=== PATIENT | male | born 1985 | race Two or more races ===

== ENCOUNTER 2023-04-25 14:51 | Emergency (ER) | payer OTHER ==
[~2023-04-25] VITALS: Ht 177.8 cm; Wt 86.3 kg
[2023-04-25 16:15] LABS: Basophils # (auto) 0 10 ^3/uL (0-0.2); Basophils % (auto) 0.5 % (0.0-2.0); Eosinophils # (auto) 0 10 ^3/uL (0-0.8); Eosinophils % (auto) 0.2 % (0.0-7.0); Hematocrit 51.3 % (41.0-53.0); Hemoglobin 17.2 g/dL (13.5-17.5); Lymphocytes % (auto) 25.5 % (10.0-50.0); Mean Corpuscular Hemoglobin 31.9 pg (28.0-32.0); Mean Corpuscular Hgb Conc. 33.5 g/dL (32.0-36.0); Monocytes # (auto) 0.5 10 ^3/uL (0-1.3); Monocytes % (auto) 6.5 % (0.0-12.0); Neutrophils # (auto) 5.2 10 ^3/uL (1.6-8.6); Neutrophils % (auto) 67.3 % (37.0-80.0); Nucleated Red Blood Cells % 0.1 %; White Blood Cell 7.7 10^3/uL (4.4-10.8)
[2023-04-25 16:31] LABS: Alanine Aminotransferase 41 U/L (7-40); Albumin 4.7 g/dL (3.2-4.8); Alkaline Phosphatase 74 U/L (46-116); Anion Gap 8 (5-15); Aspartate Aminotransferase 27 U/L (13-40); BUN/Creatinine Ratio 7.8 (10.0-20.0); Blood Urea Nitrogen 9 mg/dL (9-23); Calcium 9.5 mg/dL (8.7-10.4); Carbon Dioxide 25 mmol/L (20-30); Chloride 104 mmol/L (98-107); Glucose 84 mg/dL (74-106); Lipase 42 U/L (12-53); Potassium 4.4 mmol/L (3.5-5.1); Sodium 137 mmol/L (136-145)
[2023-04-25 16:32] LABS: Bilirubin, Total 1.2 mg/dL (0.2-1.0); Total Protein 7.8 g/dL (5.7-8.2)
[2023-04-25] MEDS ORDERED: SUCRALFATE 1 GM TAB PO ONE (17:30)
[2023-04-25] MEDS ORDERED: PANTOPRAZOLE 40 MG/10 ML VIAL INJ IV ONE (17:30)
[2023-04-25] MEDS ORDERED: SODIUM CHLORIDE 0.9% 1,000 ML IV ONE (17:30)
[2023-04-25] MEDS ORDERED: ONDANSETRON HCL 4 MG/2 ML VIAL IV ONE (17:30)
[2023-04-25] MEDS ORDERED: LIDOCAINE VISCOUS 2% 15ML UD PO ONE (17:30)
[2023-04-25] MEDS ORDERED: MAALOX PLUS or MAALOX 30 ML PO ONE (17:30)
[2023-04-25 18:40] LABS: Urine Bacteria NONE SEEN /hpf (None Seen); Urine Blood Negative /uL (Negative); Urine Clarity Clear (Clear); Urine Color Yellow (Yellow); Urine Mucus FEW (None Seen); Urine Protein, UAD TRACE (Negative); Urine Specific Gravity 1.028 (1.001-1.035); Urine Urobilinogen Normal (Negative); Urine WBC <1 /hpf (0 - 3); Urine pH 5.5 (5.0-8.0)
[2023-04-25 21:06] VITALS: BP 129/74; PULSE 84; RESP 16; TEMP 98.2; O2SAT 98
== END 2023-04-25 21:15 | disposition home or self-care (01) ==
LOC: ER 14:51
DX: R10.9 Unspecified abdominal pain (principal); R11.2 Nausea with vomiting, unspecified
CPT/HCPCS: 36415; 74176; 80053; 81001; 83690; 85025; 96361; 96374; 96375; 99285; C9113; J2405; J7030

== ENCOUNTER 2024-06-09 16:18 | Inpatient (IN) | payer OTHER ==
[~2024-06-09] VITALS: Ht 170.2 cm; Wt 99.4 kg
--- NOTE | 2024-06-09 17:17 | ED.PDOC ---
GI ASSESSMENT HPI Comments Edilberto Cantrell is a 39-year-old male patient who presents to the ED brought by EMS with chief complaint of epigastric stabbing abdominal pain which radiates towards back which started yesterday at 7:00 a.m. with intensity 8/10 and has been continuous, associated with dyspnea and functional class IV, nausea, vomiting with clear emesis, fever and chills. He says that the pain increases with arm motion and breathing in deeply. Denies palpitation, syncope, diarrhea, constipation, recent travel, sick contacts, bleeding, dysuria and motor or sensory deficits. Past medical history: Gastritis with ulcers Surgical history: EGD three years ago Family history: Mom has hypertension, grandfather has history of stroke Social history: Lives in [place], currently is in longterm for the past seven years. Used to consume marijuana had until 2003. Denies current tobacco, alcohol and other drug abuse. Allergies: Denies Home medication: Sucralfate and omeprazole Chief Complaint: Abdominal Pain Time Seen by MD: 16:23 Allergies: Coded Allergies: NO KNOWN ALLERGIES (Unverified , 04/25/23) Mode of Arrival: Ambulatory Past Medical History PAST MEDICAL HISTORY: Denies Surgical History: Denies all surgeries Family History Family History: Reviewed,noncontributory to illness, No family hx of Cancer, No family hx of DM, No family hx of Heart alton, No family hx of HTN, No family hx ofKidney alton, No family hx of Liver alton, No family hx of Lung alton, No family hx of Stroke Social History Smoker: Non-Smoker Alcohol: Denies ETOH Use Drugs: Denies Drug Use Lives In: Other Physical Exam General Appearance: No Apparent Distress, Normal HEENT: Normal ENT Inspection, Pharynx Normal, TMs Normal Neck: Full Range of Motion, Non-Tender, Normal, Normal Inspection Respiratory: Chest Non-Tender, Lungs Clear, No Accessory Muscle Use, No Respiratory Distress, Normal Breath Sounds Cardiovascular: No Edema, No JVD, No Murmur, No Gallop, Normal Peripheral Pulses, Regular Rate/Rhythm Breast Exam: Deferred Gastrointestinal: No Organomegaly, No Pulsatile Mass, Normal Bowel Sounds, Soft, Tenderness (Epigastrium) Genitalia: Deferred Pelvic: Deferred Rectal: Deferred Extremities: No calf tenderness, Normal capillary refill, Normal inspection, Normal range of motion, Non-tender, No pedal edema 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 Was a procedure done?: No GI differential Dx Differential Diagnosis: AAA, Appendicitis, Bowel Obstruction, Cholangitis, Constipation, Gastritis/PUD, Gastroenteritis, GI hemorrhage, Ischemic Bowel, UTI X-Ray, Labs, Meds, VS Vital Signs Date Time Temp Pulse Resp B/P (MAP) Pulse Ox O2 Delivery O2 Flow Rate FiO2 06/09/24 18:24 85 16 98 Room Air* 0 21 06/09/24 17:08 92 06/09/24 16:32 99.0 72 12 131/94 (106) 98 Lab Test 06/09/24 18:19 06/09/24 18:01 Range/Units White Blood Count 7.0 4.4-10.8 10^3/uL Red Blood Count 5.78 4.5-5.90 10^6/uL Hemoglobin 18.8 H 13.5-17.5 g/dL Hematocrit 54.8 H 41.0-53.0 % Mean Corpuscular Volume 94.7 80.0-100.0 fL Mean Corpuscular Hemoglobin 32.6 H 28.0-32.0 pg Mean Corpuscular Hemoglobin Concent 34.4 32.0-36.0 g/dL Red Cell Distribution Width 13.2 11.8-14.3 % Platelet Count 215 140-450 10^3/uL Mean Platelet Volume 7.5 6.9-10.8 fL Neutrophils (%) (Auto) 55.8 37.0-80.0 % Lymphocytes (%) (Auto) 34.5 10.0-50.0 % Monocytes (%) (Auto) 8.8 0.0-12.0 % Eosinophils (%) (Auto) 0.2 0.0-7.0 % Basophils (%) (Auto) 0.7 0.0-2.0 % Neutrophils # (Auto) 3.9 1.6-8.6 10 ^3/uL Lymphocytes # (Auto) 2.4 0.4-5.4 10 ^3/uL Monocytes # (Auto) 0.6 0-1.3 10 ^3/uL Eosinophils # (Auto) 0 0-0.8 10 ^3/uL Basophils # (Auto) 0 0-0.2 10 ^3/uL Nucleated Red Blood Cells 0.4 % Prothrombin Time 11.2 9.3-11.8 sec Prothrombin Time INR 1.06 0.9-1.15 Activated Partial Thromboplast Time 22.7 L 24.5-34.5 SEC Sodium Level 139 136-145 mmol/L Potassium Level 3.7 3.5-5.1 mmol/L Chloride Level 105 98-107 mmol/L Carbon Dioxide Level 25 20-31 mmol/L Anion Gap 9 5-15 Blood Urea Nitrogen 14 9-23 mg/dL Creatinine 1.32 H 0.700-1.30 mg/dL Glomerular Filtration Rate Calc 70 >90 mL/min BUN/Creatinine Ratio 10.6 10.0-20.0 Serum Glucose 92 74-106 mg/dL Lactic Acid Level 1.9 0.4-2.0 mmol/L Calcium Level 10.5 H 8.7-10.4 mg/dL Phosphorus Level 3.1 2.4-5.1 mg/dL Magnesium Level 1.9 1.6-2.6 mg/dL Total Bilirubin 0.9 0.2-1.0 mg/dL Aspartate Amino Transferase (AST) 30 13-40 U/L Alanine Aminotransferase (ALT) 31 7-40 U/L Alkaline Phosphatase 79 46-116 U/L Total Protein 8.7 H 5.7-8.2 g/dL Albumin 5.5 H 3.2-4.8 g/dL Lipase 42 12-53 U/L Troponin I High Sensitivity < 3 L </=54 ng/L Thyroid Stimulating Hormone (TSH) 2.45 0.55-4.78 uIU/mL Current Medications Medications (Trade) Dose Ordered Sig/Carlos Route Start Time Stop Time Status Last Admin Pantoprazole Sodium (Protonix) 40 mg ONCE ONCE IV 06/09/24 17:15 06/09/24 17:34 DC 06/09/24 18:23 Sodium Chloride 1,000 ml @ 100 mls/hr Q10H IV 06/09/24 17:15 06/09/24 18:23 X-Ray, Labs, Meds, VS Comment Review laboratory results and abdominal ultrasound, showed YOGESH and hemoconcentration probably secondary to dehydration due to emesis. Time of 1ST Reevaluation: 19:37 Reevaluation 1ST: Worsened Patient Education/Counseling: Diagnosis, Treatment, Prognosis Family Education/Counseling: Diagnosis, Treatment, Prognosis Departure 1 Departure Time of Disposition: 19:37 Impression: Primary Impression: YOGESH (acute kidney injury) Disposition: 09 ADMITTED INPATIENT Condition: Serious Additional Instructions: Reviewed vital signs, laboratory results and abdominal ultrasound. Did not show any acute abdominal disease. Patient was given p.o. water but did not tolerate, indicated IV Zofran. Patient will benefit from IV fluids and evaluate tolerance to oral intake. Recommend admission at this point until patient tolerates food intake. We will continue with IV fluids to improve hemoconcentration and YOGESH, and we will also indicated IV Protonix and IV Zofran. Critical Care Note Critical Care Time?: No Stability Stability form required: No Heart Score Heart Score: Heart Score Response (Comments) Value History N/A 0 EKG N/A 0 Age N/A 0 Risk Factors N/A 0 Troponin N/A 0 Total 0 ABDI MENCHACA RESIDENT Jun 09, 2024 17:17
--- NOTE | 2024-06-09 18:08 | DVH ---
EXAM: US ABDOMEN LIMITED CLINICAL HISTORY: Abdominal pain TECHNIQUE: Grayscale and limited color flow doppler ultrasound of the right upper quadrant is perfor med. COMPARISON: None Findings: Liver measures 11.9 cm in length with normal echotexture and contour. No evidence of focal hepatic l esions or intra- or extrahepatic ductal dilatation. Common bile duct measures 0.3 cm in diameter. Nor mal hepatopedal flow noted within the portal vein. No perihepatic free fluid is noted. Gallbladder appears within normal limits with gallbladder wall thickness measuring 0.1 cm. No evidenc e of shadowing calculi, biliary sludge or pericholecystic fluid. Negative sonographic Ramos's sign. Pancreas only partially visualized due to overlying bowel gas but is otherwise unremarkable . Right kidney measures 9.5 cm with normal contours, echotexture and cortical thickness. No evidence of hydronephrosis, calculi, cystic or solid renal lesions. Partially visualized inferior vena cava unremarkable. Impression: 1. No evidence of acute right upper quadrant abnormalities.
[2024-06-09] MEDS: SODIUM CHLORIDE 0.9% 1,000 ML IV SCH ×2 (18:23→20:18)
[2024-06-09] MEDS: PANTOPRAZOLE 40 MG/10 ML VIAL INJ IV ONE (18:23)
[2024-06-09 18:24] VITALS: PULSE 85; RESP 16; O2SAT 98
[2024-06-09 18:30] LABS: Eosinophils # (auto) 0 10 ^3/uL (0-0.8); Eosinophils % (auto) 0.2 % (0.0-7.0); Lymphocytes # (auto) 2.4 10 ^3/uL (0.4-5.4); Monocytes # (auto) 0.6 10 ^3/uL (0-1.3); Neutrophils # (auto) 3.9 10 ^3/uL (1.6-8.6)
[2024-06-09 18:32] LABS: Basophils # (auto) 0 10 ^3/uL (0-0.2); Basophils % (auto) 0.7 % (0.0-2.0); Hematocrit 54.8 % (41.0-53.0); Hemoglobin 18.8 g/dL (13.5-17.5); Lymphocytes % (auto) 34.5 % (10.0-50.0); Mean Corpuscular Hemoglobin 32.6 pg (28.0-32.0); Mean Corpuscular Hgb Conc. 34.4 g/dL (32.0-36.0); Mean Corpuscular Volume 94.7 fL (80.0-100.0); Monocytes % (auto) 8.8 % (0.0-12.0); Neutrophils % (auto) 55.8 % (37.0-80.0); Nucleated Red Blood Cells % 0.4 %; Platelet Count (auto) 215 10^3/uL (140-450); Red Blood Cells 5.78 10^6/uL (4.5-5.90); Red Cell Distribution Width 13.2 % (11.8-14.3)
[2024-06-09 18:54] LABS: Magnesium 1.9 mg/dL (1.6-2.6)
[2024-06-09 18:55] LABS: INR 1.06 (0.9-1.15); Partial Thromboplastin Time 22.7 SEC (24.5-34.5); Prothrombin Time 11.2 sec (9.3-11.8)
[2024-06-09 18:56] LABS: Alanine Aminotransferase 31 U/L (7-40); Alkaline Phosphatase 79 U/L (46-116); Anion Gap 9 (5-15); Aspartate Aminotransferase 30 U/L (13-40); BUN/Creatinine Ratio 10.6 (10.0-20.0); Bilirubin, Total 0.9 mg/dL (0.2-1.0); Blood Urea Nitrogen 14 mg/dL (9-23); Carbon Dioxide 25 mmol/L (20-31); Chloride 105 mmol/L (98-107); Glucose 92 mg/dL (74-106); Phosphorus 3.1 mg/dL (2.4-5.1); Potassium 3.7 mmol/L (3.5-5.1); Sodium 139 mmol/L (136-145)
[2024-06-09 19:00] LABS: Albumin 5.5 g/dL (3.2-4.8); Calcium 10.5 mg/dL (8.7-10.4); Total Protein 8.7 g/dL (5.7-8.2)
[2024-06-09] MEDS ORDERED: ONDANSETRON HCL 4 MG/2 ML VIAL IV PRN (19:45)
[2024-06-09] MEDS: SUCRALFATE 1 GM/10 ML ORAL SUSP PO ONE (20:05)
[2024-06-09] MEDS: ONDANSETRON HCL 4 MG/2 ML VIAL IV ONE (20:05)
[2024-06-09] MEDS: SODIUM CHLORIDE 0.9% 2,000 ML IV ONE (20:05)
[2024-06-09] MEDS ORDERED: MORPHINE SULFATE INJ 2 MG/ml SYRG IV PRN (21:00)
--- NOTE | 2024-06-09 21:37 | DVH ---
Exam: CT CT AB PEL WITH IV CON ONLY History: abd pain COMPARISON: None Technique: Multidetector spiral CT of the abdomen and pelvis was performed from lung bases to pubic s ymphysis. Intravenous contrast was administered during this examination. Portal venous imaging was obtained. Axial, coronal and sagittal multiplanar reformats were performed by the technologist on a separate workstation. Radiation Dose : 1. Abdomen/Pelvis: CTDIvol 12 mGy, DLP 663.86 mGy*cm. CONTRAST: Type of contrast: Omnipaque 300 Contrast injected: 100 ml Findings: Lung Bases: No acute or significant lung base finding. Normal heart size. No pleural or pericardial effusion. Liver: The liver is normal in size. No focal lesions. Normal hepatic vascular enhancement. Gallbladder and Biliary Tree: Unremarkable Spleen: Unremarkable Pancreas: The pancreas is normal in appearance without focal lesions or abnormal enhancement. Adrenal Glands: Unremarkable Kidneys: No hydronephrosis. Bladder: Unremarkable Bowel: The stomach is grossly normal in appearance. Small bowel and colon are normal in caliber and d istribution. Normal appendix is visualized in the right lower quadrant without findings of appendici tis. Ascites: Absent Lymphadenopathy: No mesenteric, retroperitoneal or periportal lymphadenopathy. Abdominal Wall and Mesentery: Unremarkable. Vasculature: The visualized abdominal aorta is normal in size and caliber. Abdominal and pelvic vess els demonstrate normal enhancement. Pelvic Organs: Unremarkable Musculoskeletal: No aggressive focal bony lesions, acute fractures or dislocation. IMPRESSION: 1. No acute abdominal or pelvic finding. Radiation optimization: All CT scans at this facility use at least one of these dose optimization radha hniques: automated exposure control mA and/or kV adjustment per patient size (includes targeted exam s where dose is matched to clinical indication) or iterative reconstruction.
[2024-06-09] MEDS: D5W/SOD CHL 0.45% 1,000 ML IV ONE (21:44)
[2024-06-09] MEDS: IOHEXOL 300 MG/ML 100ML BOTTLE IJ ONE (21:44)
[2024-06-09] MEDS: ENOXAPARIN SOD 40 MG/0.4 ML SYRINGE SC ONE (21:45)
[2024-06-09] MEDS: SUCRALFATE 1 GM/10 ML ORAL SUSP PO SCH (22:00)
[2024-06-09] MEDS: PANTOPRAZOLE 40 MG/10 ML VIAL INJ IV SCH (22:12)
[2024-06-09 22:43] VITALS: PULSE 86; RESP 16; O2SAT 98
[2024-06-09 23:11] VITALS: BP 105/62; PULSE 73; RESP 18; TEMP 98; O2SAT 97
[2024-06-09] MEDS: MORPHINE SULFATE 4 MG/ML SYR/VIAL IV PRN (23:43)
[2024-06-10] VITALS (8 sets, daily range): BP systolic 97–120; BP diastolic 54–68; PULSE 66–90; RESP 16–18; TEMP 98–98.7; O2SAT 96–98
[2024-06-10] MEDS ORDERED: SUCR1TAB PO (00:05)
[2024-06-10] MEDS ORDERED: OMEP20TA PO (00:05)
[2024-06-10 02:33] LABS: Urine Bacteria None Seen /hpf (None Seen)
[2024-06-10 03:14] LABS: Urine Blood Negative /uL (Negative); Urine Clarity Clear (Clear); Urine Color Colorless (Yellow); Urine Protein, UAD Negative (Negative); Urine Squamous Epithelial Cell None Seen /hpf (<5); Urine Urobilinogen Normal (Negative)
[2024-06-10 03:18] LABS: Urine Specific Gravity > 1.050 (1.001-1.035)
[2024-06-10 03:22] LABS: Urine WBC < 1 /HPF (0-3)
[2024-06-10 03:32] LABS: Amphetamine Screen, Urine Neg (NEGATIVE); Barbiturate Scree,Urine Neg (NEGATIVE); Benzodiazephine Screen, Urine Neg (NEGATIVE); Cannabinoid Screen, Urine Neg (NEGATIVE); Cocaine Screen, Urine Neg (NEGATIVE); Opiate Scree,Urine Neg (NEGATIVE); Phencyclidine Screen, Urine Neg (NEGATIVE)
--- NOTE | 2024-06-10 08:13 | ECG ---
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
[2024-06-10] MEDS ORDERED: MAALOX PLUS or MAALOX 30 ML PO PRN (10:30)
[2024-06-10] MEDS: GASTROGRAFIN 120 ML SOL ONE (10:57)
[2024-06-10] MEDS: EZ PAQUE SUSP 12OZ BTL ONE (10:58)
--- NOTE | 2024-06-10 11:20 | DVHHP ---
ADMIT DATE: 06/10/2024 ATTENDING PHYSICIAN: Trevor Knight MD CHIEF COMPLAINT: Mid epigastric abdominal pain. HISTORY OF PRESENT ILLNESS: This is a 39-year-old male, [employer] inmate, who has a history of gastritis/ulcer in the past. The patient states he has been taking sucralfate daily for the last 3 years. I informed the patient that, that is inappropriate and should only have been taken for approximately a couple of months at most. It does have some known side effects with chronic use. The patient states that this pain started on 2 days ago when he was in the cafeteria, was starting to eat, but then developed severe sharp mid epigastric pain radiating to his back, which he states was 8-10/10 on scale. He stated he felt nauseous and tried to throw up, but only "white foamy stuff came out." The patient states his last bowel movement was 2 days ago, which was normal and he has not had any fever, blood in stools or blood in vomitus. The patient states he also takes omeprazole 20 mg daily. PAST MEDICAL HISTORY: Gastritis with gastric ulcers. PAST SURGICAL HISTORY: Denies. FAMILY HISTORY: Mother had hypertension. SOCIAL HISTORY: Denied smoking, alcohol use or any drug use. He states that he only smoked marijuana . He is . He has got 5 children. 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 REVIEW OF SYSTEMS: GENERAL: Denies any recent weight changes. HEENT: Denies any loss of consciousness, severe headache. CARDIOVASCULAR: Denies chest pain, heart disease. RESPIRATORY: Denies cough, shortness of breath, hemoptysis. GASTROINTESTINAL: As per HPI. GENITOURINARY: Noncontributory. NEUROLOGIC: Denies any focal deficits. PHYSICAL EXAMINATION: VITAL SIGNS: His temperature is 99 with a blood pressure of 131/94, heart rate of 72, respiratory rate of 12, and O2 sats 96% on room air. HEENT: Normocephalic, anicteric sclerae, pink conjunctivae. EOMI. NECK: Supple. There is no JVD, mass or bruit. CHEST: Good equal excursion bilateral, nontender. HEART: S1, S2 regular. No click, murmur or gallop. LUNGS: Good equal air exchange bilateral. Clear to auscultation. ABDOMEN: Soft. Bowel sounds are positive. There is [id number] mid epigastric tenderness. There is no guarding or rebound. EXTREMITIES: Negative ECC. NEUROLOGIC: He is awake, alert, oriented x 4 without focal deficits. LABORATORY DATA: WBC is 7.0 with a hemoglobin of 18.8 and a platelet of 215. Sodium 139, potassium 3.7, BUN 14, creatinine 1.32, glucose of 92, calcium 10.5. Liver enzymes are normal. Total protein 8.7, albumin 5.5. PT is 11.2, PTT 22.7. UA is specific gravity of greater than 1.05 and ketones 2+, otherwise all other markers are normal. Urine drug screen showed positive for fentanyl. Right upper quadrant ultrasound, no evidence of any abnormality and CT of abdomen and pelvis with IV contrast, no acute abdominal or pelvic findings. ASSESSMENT: Abdominal pain, mid epigastric, history of gastritis, history of gastric ulcers. PLAN: Admit to Med/Surg. Condition is stable. Put him on a clear liquid diet. We will order an upper GI series and start patient on pantoprazole 40 mg b.i.d. IV. We will discontinue IV fluids. We will hold Lovenox for now. We will give morphine for pain and Zofran for nausea and vomiting. MD EARLINE Long/ARCADIO/GEORGES TID: [id number] RECEIPT: [id number]
--- NOTE | 2024-06-10 14:14 | DVH ---
XY UGI REGULAR BARIUM W SMALL BW, HISTORY: GASTRITIS/ULCER COMPARISON: None PROCEDURE: A transaction processor radiograph was obtained prior to the procedure. Gastrograffin administered orally , and radiographs were obtained under intermittent fluoroscopic observation. Following the upper GI p rocedure, abdominal radiographs were obtained . Total fluoroscopic time was 0.9 minutes. DAP [id number] FINDINGS: The transaction processor image demonstrates no evidence for obstruction or free intraperitoneal gas. The esophagus was normal in caliber with no stricture, filling defect or wall irregularity demonstrat ed. Normal esophageal peristalsis was observed. There was prompt passage of contrast through a normal appearing gastroesophageal junction. The stomac h distended normally with a normal mucosal pattern and no evidence for filling defect, mass or wall i rregularity. Mild narrowing of the descending portion of the duodenum could be due to inflammation. Contrast flowe d into more distal loops of small bowel, with no abnormality identified. Mild esophageal reflux was demonstrated . Contrast was seen in the cecum by 1 hour. There is normal appearance of the small bowel without obstr uction, wall thickening or abnormal mucosal pattern. IMPRESSION: Mild narrowing of the descending portion of the duodenum could be due to inflammation. Mild esophageal reflux was demonstrated . Normal small bowel series.
[2024-06-10] MEDS: ONDANSETRON HCL 4 MG/2 ML VIAL IV PRN (18:23)
[2024-06-11 01:00] VITALS: BP 100/63; PULSE 68; RESP 17; TEMP 98; O2SAT 98
[2024-06-11 05:00] VITALS: BP 107/74; PULSE 65; RESP 17; TEMP 98; O2SAT 97
[2024-06-11 07:50] LABS: Basophils # (auto) 0 10 ^3/uL (0-0.2); Basophils % (auto) 0.6 % (0.0-2.0); Eosinophils # (auto) 0.1 10 ^3/uL (0-0.8); Eosinophils % (auto) 1.5 % (0.0-7.0); Hematocrit 47.3 % (41.0-53.0); Hemoglobin 16.1 g/dL (13.5-17.5); Lymphocytes # (auto) 1.6 10 ^3/uL (0.4-5.4); Lymphocytes % (auto) 35.2 % (10.0-50.0); Mean Corpuscular Hemoglobin 32.7 pg (28.0-32.0); Mean Corpuscular Hgb Conc. 33.9 g/dL (32.0-36.0); Mean Corpuscular Volume 96.3 fL (80.0-100.0); Monocytes # (auto) 0.4 10 ^3/uL (0-1.3); Monocytes % (auto) 8.5 % (0.0-12.0); Neutrophils # (auto) 2.4 10 ^3/uL (1.6-8.6); Neutrophils % (auto) 54.2 % (37.0-80.0); Nucleated Red Blood Cells % 0.1 %; Platelet Count (auto) 180 10^3/uL (140-450); Red Blood Cells 4.91 10^6/uL (4.5-5.90); White Blood Cell 4.5 10^3/uL (4.4-10.8)
[2024-06-11 08:52] VITALS: BP 119/70; PULSE 83; RESP 18; TEMP 97.5; O2SAT 96
[2024-06-11] MEDS ORDERED: traMADol HCL 50 MG TAB PO PRN (11:15)
[2024-06-11 13:00] VITALS: BP 125/79; PULSE 76; RESP 17; TEMP 98.1; O2SAT 94
[2024-06-11] MEDS: PANTOPRAZOLE 40 MG TAB PO SCH (16:32)
[2024-06-11 16:33] VITALS: BP 96/62; PULSE 74; RESP 18; TEMP 98.1; O2SAT 94
--- NOTE | 2024-06-11 19:10 | DVHPN ---
DATE: 06/11/2024 ATTENDING PHYSICIAN: Trevor Knight MD SUBJECTIVE: The patient states he still gets some feeling of nausea when he eats. He has no actual vomiting, not yet had a bowel movement. Other than that he states it seems his pain is well controlled. He denies any lightheadedness, chest pain, cough, shortness of breath nor fever. No untoward events have been noted. OBJECTIVE: VITAL SIGNS: His temperature is 97.5 with a blood pressure of 119/70, heart rate of 83, respiratory rate of 18, O2 sats 96% on room air. HEART: S1 and S2 regular. No click, murmur or gallop. LUNGS: Good equal air exchange bilateral, clear to auscultation. ABDOMEN: Soft, nondistended. Questionable mild mid epigastric tenderness, no guarding, no rebound. NEUROLOGIC: He is awake, alert and oriented x4 without focal deficits. LABORATORY DATA: We have a WBC of 4.5, hemoglobin 16.1, platelet of 180. Upper GI series shows mild narrowing of the descending portion of duodenum could be due to inflammation. There is mild esophageal reflux, otherwise normal small bowel series. ASSESSMENT: * Mid epigastric abdominal pain. * Duodenitis. * Gastroesophageal reflux. * History of gastritis. * History of gastric ulcers. PLAN: We will discontinue clear liquid diet and advance him to a regular diet. We will continue with Protonix 40 mg b.i.d. We will convert to p.o. and discontinue the morphine and start the patient on tramadol. We will continue with Zofran for nausea and vomiting and Maalox p.r.n. for the mid epigastric pain. We will also encourage the patient to ambulate and shower p.r.n. MD EARLINE Long/MARY TID: [id number] RECEIPT: [id number]
[2024-06-11 21:00] VITALS: BP 101/68; PULSE 82; RESP 20; TEMP 98.3; O2SAT 95
[2024-06-12 01:00] VITALS: BP 110/74; PULSE 76; RESP 20; TEMP 98.2; O2SAT 95
[2024-06-12 05:00] VITALS: BP 134/81; PULSE 70; RESP 20; TEMP 97.5; O2SAT 98
[2024-06-12 08:00] VITALS: PULSE 88; RESP 16; O2SAT 96
[2024-06-12 09:00] VITALS: BP 108/54; PULSE 89; RESP 18; TEMP 97.6; O2SAT 95
[2024-06-12 09:07] LABS: Hepatitis B Surface Antigen Negative (Negative)
[2024-06-12 09:38] LABS: Hepatitis C Antibody Negative (Negative)
[2024-06-12 12:29] VITALS: BP 106/60; PULSE 52; RESP 18; TEMP 98.7; O2SAT 69
[2024-06-12 12:33] VITALS: BP 108/75; PULSE 52; RESP 18; TEMP 98.7; O2SAT 96
--- NOTE | 2024-06-12 12:46 | DVHDS ---
DATE OF DISCHARGE: 06/12/2024 ATTENDING PHYSICIAN: Trevor Knight MD CHIEF COMPLAINT ON ADMISSION: Mid epigastric abdominal pain. HISTORY OF PRESENT ILLNESS: A 39-year-old male, [facility] inmate, with known history of gastritis and ulcer in the past, presented to Emergency Room with complaint of mid epigastric abdominal pain started 2 days ago and progressively worsening. He considered 8-10/10 on a scale. He was admitted for further management. ADMITTING DIAGNOSES: * Abdominal pain, mid epigastric. * History of gastritis. * History of gastric ulcers. HOSPITAL COURSE: He was admitted to Med/Surg in stable condition, started on a clear liquid diet, started on pantoprazole 40 b.i.d. and was given morphine for pain and Zofran for nausea and vomiting. During hospital stay, right upper quadrant ultrasound was unremarkable. CT of the abdomen and pelvis showed no acute abdominal or pelvic findings. Upper GI series revealed possible duodenitis, mild esophageal reflux, otherwise normal bowel series. It has been notified today that there has been a breach of security that had been outside, people who were claiming to be family members were trying to make contact due to the breach. The patient is being discharged back to the care of the [facility] authorities in good and stable condition. He is tolerating regular diet. His pain is very well controlled. Prior to the breach, it was my intention that the patient had no issues with regular diet, which he started receiving yesterday that I would discharge him today anyway. DISCHARGE DIAGNOSES: Mid epigastric abdominal pain, duodenitis, gastroesophageal reflux. DISCHARGE MEDICATIONS: Instructed to resume omeprazole that he has been taking at the present and discontinue the sucralfate. He was instructed to follow up with health services unit p.r.n. MD EARLINE Long/BRENNEN/JONATHAN TID: [id number] RECEIPT: [id number]
== END 2024-06-12 12:50 | DRG 392 ==
LOC: ER 16:18 → EDBD 16:18 → EEVIPCON 16:18 → OVERFLOW 20:54 → WEST WING 22:57
PROVIDERS: ADMIT Internal Medicine; ATTEND Internal Medicine
DX: K29.80 Duodenitis without bleeding (principal); N17.9 Acute kidney failure, unspecified; K21.9 Gastro-esophageal reflux disease without esophagitis; Z87.11 Personal history of peptic ulcer disease; Z82.49 Family history of ischemic heart disease and other diseases of the circulatory system; Z82.3 Family history of stroke
CPT/HCPCS: 36415; 74177; 74248; 76705; 80053; 80307; 81001; 82962; 83605; 83690; 83735; 84100; 84443; 84484; 85025; 85610; 85730; 86803; 87340; 93005; G0378; J2405; J2470